=== PATIENT | male | born 1980 | race African-American/Black ===

== ENCOUNTER 2018-07-19 21:28 | Emergency (ER) | payer OTHER ==
[~2018-07-19 21:28] MED LIST: ISOVUE-370 76%-LOCM 1 ML ONE
[2018-07-19 21:53] LABS: #Basophils 0.1 thou/uL (0.0-0.2); #Eosinphils 0.3 thou/uL (0.0-0.7); #Lymphocytes 2.2 thou/uL (1.20-3.40); #Monocytes 0.4 thou/uL (0.11-0.59); %Basophils 1.7 % (0.0-1.0); %Monocytes 8.4 % (0.0-10.0); %Neutrophils 39.9 % (42.0-75.0); Hemoglobin 15.3 g/dL (14.0-18.0); Mean Corpuscular HGB CONC 32.5 g/dL (32.0-36.0); Mean Corpuscular Volume 89.2 fL (78.0-98.0); Mean Platelet Volume 6.1 fL (7.4-10.4); Platelet Count 261 thou/uL (130-400); RBC Distribution Width 12.1 % (11.5-14.5); Red Blood Cell (RBC) Count 5.28 mill/uL (4.70-6.10)
[2018-07-19 22:22] LABS: ALT (SGPT) 23 U/L (8-55); AST (SGOT) 25 U/L (5-34); Albumin 4.2 g/dL (3.5-5.0); Alkaline Phosphatase 55 U/L (40-150); Anion Gap 11 mmol/L (10-20); BUN (Urea Nitrogen) 15 mg/dL (8.9-20.6); Bilirubin, Total 0.9 mg/dL (0.2-1.2); Calc. Creatinine Clearance 0 mL/min (70-130); Calcium 9.5 mg/dL (7.8-10.44); Carbon Dioxide 28 mmol/L (22-29); Chloride 102 mmol/L (98-107); Estimated GFR-MDRD Greater than 90; Globulin 3.4 g/dL (2.4-3.5); Glucose 95 mg/dL (70-105); Potassium 4.2 mmol/L (3.5-5.1); Protein, Total 7.6 g/dL (6.0-8.3); Sodium 137 mmol/L (136-145)
--- NOTE | 2018-07-19 22:24 | CT ---
HEAD CT WITHOUT CONTRAST: 07/19/18 COMPARISON: None. HISTORY: Right sided head pain. TECHNIQUE: Serial axial CT imaging at 5 mm intervals from vertex through skull base without contrast. FINDINGS: The imaged paranasal sinuses/mastoid air cells demonstrate no acute findings. There is an old fractur e involving the medial orbital wall on the left. No intracranial hemorrhage, midline shift, mass effe ct or ventricular enlargement. IMPRESSION: No acute findings. POS: [facility]
--- NOTE | 2018-07-19 22:26 | CT ---
FACIAL BONE CT 07/19/18 COMPARISON: None. HISTORY: Right sided facial pain radiating to the ear. TECHNIQUE: Serial axial CT imaging at 2.5 mm intervals through the facial bones with coronal and sagittal reform atted imaging. FINDINGS: There is an old medial orbital wall fracture on the left. The frontal sinuses, the ethmoid air cells, the maxillary sinuses, the sphenoid sinuses, and the imaged mastoid air cells appear within normal l imits. The zygomatic arches, the pterygoid plates, and the nasal bones appear unremarkable with no acute fra cture noted. The orbital floor and medial orbital wall demonstrates no acute findings on either side. IMPRESSION: No acute findings. POS: [facility]
--- NOTE | 2018-07-19 23:29 | CT ---
CT ANGIOGRAM NECK: 07/19/18 COMPARISON: None. HISTORY: Dizziness when turning head to the right, headache. TECHNIQUE: Serial axial CT imaging is obtained at 1.25 mm intervals from skull base through upper chest with IV contrast using a CT angiogram protocol. Coronal and sagittal 3D reformatted imaging obtained. FINDINGS: The imaged lung parenchyma appears grossly unremarkable. Limited assessment of the imaged brain paren chyma is grossly unremarkable. There is an old fracture involving the medial orbital wall on the left. The retroantral fat and the p arapharyngeal fat appears clear bilaterally. Limited assessment of the parotid gland and submandibula r glands appears unremarkable. The right lobe of the thyroid is prominent but no discrete thyroid nodule is apparent. The region of the tonsillar pillars, epiglottis and pre-epiglottic fat, hyoid bone, thyroid cartilage, cricoid cart ilage and glottis appear grossly unremarkable. There is a bovine arch noted. Origin of innominate artery, left common carotid artery, left subclavia n artery, left vertebral artery, right common carotid artery, right subclavian artery, and right vert ebral artery appear unremarkable. On the basis of NASCET criteria, there is no hemodynamically significant stenosis involving the commo n carotid artery on either side. No hemodynamically significant stenosis is seen involving the internal carotid artery on either side. There is mild atherosclerotic calcification at the origin of the left internal carotid artery. Bilateral vertebral arteries are patent. No acute osseous abnormality. IMPRESSION: Unremarkable CT angiogram of the neck. POS: [facility]
[2018-07-20] MEDS ORDERED: Ketorolac Tromethamine 30 MG/ML VIAL ONE (00:03)
[2018-07-20] MEDS ORDERED: diphenhydrAMINE 50 MG/ML VIAL ONE (00:03)
[2018-07-20] MEDS ORDERED: Metoclopramide HCl 10 MG/2 ML VIAL ONE (00:03)
== END 2018-07-20 00:39 | disposition home or self-care (01) ==
LOC: ERS 21:28
DX: R51 Headache (principal); R42 Dizziness and giddiness; I10 Essential (primary) hypertension; Z86.718 Personal history of other venous thrombosis and embolism; Z87.891 Personal history of nicotine dependence; Z79.899 Other long term (current) drug therapy
CPT/HCPCS: 70450; 70486; 70498; 80053; 85025; 96361; 96365; 96375; J1200; J1885; J2765

== ENCOUNTER 2025-04-19 10:31 | Emergency (ER) | payer OTHER ==
[2025-04-19] MEDS ORDERED: Dexamethasone 10 MG/ML VIAL ONE (11:09)
[2025-04-19] MEDS ORDERED: Ibuprofen 200 MG TAB ONE ×2 (11:09→11:10)
[2025-04-19] MEDS ORDERED: Acetaminophen 500 MG TAB ONE (11:11)
== END 2025-04-19 11:28 ==
LOC: ERS 10:31
DX: M54.2 Cervicalgia (principal); Z86.718 Personal history of other venous thrombosis and embolism; I10 Essential (primary) hypertension; Z79.01 Long term (current) use of anticoagulants; Z79.899 Other long term (current) drug therapy
CPT/HCPCS: 99283; J1100